=== PATIENT | male | born 1985 | race Caucasian/White ===

== ENCOUNTER 2018-09-07 01:52 | Emergency (ER) | payer SELFPAY ==
[~2018-09-07] VITALS: Ht 182.9 cm; Wt 109.1 kg
[~2018-09-07 01:52] MED LIST: AMOXICILLIN 8751 TAB PO; PHENERGAN W/CO120 M1 PO
[2018-09-07 02:00] VITALS: BP 149/80; TEMP 98.1
[2018-09-07] MEDS ORDERED: ZITHROMAX Z PA250 MG PO (02:18)
[2018-09-07 02:25] VITALS: PULSE 93
== END 2018-09-07 02:25 | disposition home or self-care (01) ==
LOC: COL.ER 01:52
DX: J20.9 Acute bronchitis, unspecified (principal); F17.210 Nicotine dependence, cigarettes, uncomplicated

== ENCOUNTER 2022-01-25 13:12 | Emergency (ER) | payer BC, MEDICAID ==
[~2022-01-25] VITALS: Ht 182.9 cm; Wt 118.2 kg
[~2022-01-25 13:12] MED LIST changes: +ZITHROMAX Z PA250 MG PO
[2022-01-25 13:18] VITALS: TEMP 98.8
[2022-01-25] MEDS ORDERED: PEN-VEE K500 MG PO (13:36)
[2022-01-25 13:45] VITALS: BP 134/84; PULSE 84
[2022-01-28] MEDS ORDERED: MAGIC MOUTH PO (19:30)
== END 2022-01-25 13:45 | disposition home or self-care (01) ==
LOC: COL.ER 13:12
DX: J03.90 Acute tonsillitis, unspecified (principal); Z28.310 Unvaccinated for COVID-19